=== PATIENT | male | born 1960 | race Caucasian/White ===

== ENCOUNTER 2022-09-04 14:52 | Outpatient (REF) | payer OTHER, SELFPAY ==
[2022-09-06 10:41] LABS: COVID-19 RT-PCR UVMMC Result Negative (Negative)
== END 2022-09-04 14:53 | disposition home or self-care (01) ==
LOC: LBN 14:52
PROVIDERS: Visit Provider Physician Assistant Medical
DX: R09.89 Other specified symptoms and signs involving the circulatory and respiratory systems (principal); Z20.822 Contact with and (suspected) exposure to COVID-19
CPT/HCPCS: U0003; 87081

== ENCOUNTER 2023-06-04 14:59 | Outpatient (CLI) | payer MEDICARE, OTHER, SELFPAY ==
--- NOTE | 2023-06-04 15:06 | DI.RAD_ITS ---
Exam(s) XR CHEST 2V PA LATERAL EXAM: XR CHEST 2V PA LATERAL CLINICAL HISTORY: COUGH, FEVER,? PNEUMONIA,RHONCHOROROUS SOUNDS. TECHNIQUE: 2D digital imaging was performed. COMPARISON: No exams were available for comparison FINDINGS: 2 views: Heart size is normal. The mediastinum is not widened. Lungs are clear. No infiltrates nor pleural effusions. IMPRESSION: No acute pulmonary findings. DATA REPOSITORY: RADIATION DOSE DELIVERED:
== END 2023-06-04 15:19 ==
PROVIDERS: Visit Provider Physician Assistant Medical
DX: R05.8 Other specified cough (principal)
CPT/HCPCS: 71046

== ENCOUNTER 2023-06-04 15:05 | Outpatient (REF) | payer MEDICARE, OTHER, SELFPAY ==
[2023-06-07 10:29] LABS: Lyme Ab w Rflx to Lyme Confirm Negative (Negative)
[2023-06-09 14:35] LABS: B. miyamotoi PCR Negative (Negative); Babesia divergens/MO-1 Negative (Negative); Babesia duncani Negative (Negative); Babesia microti Negative (Negative); Ehrlichia chaffeensis Negative (Negative); Ehrlichia ewingii/canis Negative (Negative); Ehrlichia muris eauclairensis Negative (Negative)
[2023-06-09 14:51] LABS: Anaplasma phagocytophilum Positive (Negative)
== END 2023-06-04 15:06 | disposition home or self-care (01) ==
LOC: LBN 15:05
PROVIDERS: Visit Provider Physician Assistant Medical
DX: M79.18 Myalgia, other site (principal)
CPT/HCPCS: 87798; 86618

== ENCOUNTER 2023-06-05 17:34 | Emergency (ER) | payer MEDICARE, OTHER, SELFPAY ==
[2023-06-05 17:37] VITALS: BP 152/95; PULSE 95; RESP 22; TEMP 37.2; O2SAT 98
--- NOTE | 2023-06-05 17:41 | ED.GENADUL_ITS ---
Discharge Plan Disposition Patient Disposition: Home Discharge Details Clinical Impression: Viral illness Primary Care Provider: Unknown,Unknown ED Provider: Jim Varma Watkins Meds and New Rx's Prescriptions: New ondansetron 4 mg tablet,disintegrating 4 mg PO Q8H PRNQty: 14 0RF Continued benzonatate 200 mg capsule 200 mg PO TID PRN Patient Comments: take 1 capsule by mouth three times a day if needed lisinopril 20 mg tablet 20 mg PO DAILY Patient Comments: take 1 tablet by mouth once daily albuterol sulfate 90 mcg/actuation HFA aerosol inhaler 2 puff INHALATION Q4H PRN PRN Patient Comments: INHALE 2 PUFFS BY MOUTH AND INTO THE LUNGS EVERY 4 TO 6 HORUS ... (REFER TO PRESCRIPTION NOTES). tadalafil 20 mg tablet 20 mg PO DAILY Patient Comments: take 1 tablet by mouth every DAY NEEDED Discharge Instructions Instructions: Viral Syndrome (ED) Additional Instructions: You were seen in the ED for continued fever, body aches, nausea, cough with a work-up that is reassuring and vital signs that are reassuring. This does seem to be viral in nature. Have prescribed ondansetron to help control nausea. Rest and take it easy over the rest of the weekend alternating acetaminophen with ibuprofen as we discussed. Push fluids to stay hydrated. Follow-up with primary care on Wednesday. Return to ED for any increasing shortness of breath, confusion, chest pain, abdominal pain, vomiting, other concerns. Medical Decision Making Patient presenting with continued symptoms that seem most consistent with viral illness. His chest x-ray from yesterday was read as negative. I have reviewed it myself today and concur. EKG is sinus rhythm with PVC no acute ST changes. He does appear to be tachypneic but he is not tachycardic. He has low-grade fever here. His lungs are clear without wheeze. His abdomen is benign. We will place an IV and give fluids and Zofran. We will check laboratory studies and nasal swab and reevaluate. Patient's white count and platelets are little low but hemoglobin is normal. Chemistries with some evidence of dehydration with BUN and creatinine being a little high. Electrolytes are normal. Liver function mostly normal other than an AST of 41. Troponin is negative. Urinalysis negative. On reevaluation he does feel somewhat better. Still seems a little tachypneic but with ambulation his heart rate and saturations stayed normal. I did do a VBG as he is a former smoker and he is alkalotic with a PCO2 of 26 consistent with his tachypnea which may be driven by his fevers as his heart rate and respiratory rate have come down with his fever. He does have a tick panel pending but this seems unlikely. I think this is all viral in nature. Will prescribe Zofran for recurrent nausea. Home to rest for the rest of the weekend. Follow-up with primary care on Wednesday. Return precautions provided. Lab Data Lab results reviewed: Yes I reviewed the patient's lab results. ECG Data Attestation: I personally reviewed and interpreted this ECG (s) as follows: Prior ECG tracings: available for review Interpretation: see EKG HPI General Mode of arrival: ambulatory . Date/Time Provider Initiated Documentation: 06/05/23 17:35 . Limitations to Documentation: no limitations . Information obtained by: patient . HPI Narrative: Patient presents to ED with continued body aches, nausea, fever, shortness of breath. Patient began to feel unwell on Wednesday, 3 days ago. Patient was seen at urgent care yesterday and had a tick panel drawn as well as a chest x- ray done. He reports negative home COVID test and reports negative [id number]-dhup COVID/flu test at urgent care. Does not have much of an appetite but he has been drinking. He has a cough but it is nonproductive. He has mild headache but much more fatigue, malaise, body aches than anything. Fever does respond to [id number] antipyretics but keeps returning. Denies any rash. Denies any urinary symptoms. Denies any abdominal pain. Related Data Home Medications Medication Instructions Recorded Confirmed albuterol sulfate 90 mcg/actuation 2 puff inhalation Q4H PRN PRN 06/05/23 06/05/23 aerosol inhaler benzonatate 200 mg capsule 200 mg PO TID PRN 06/05/23 06/05/23 lisinopril 20 mg tablet 20 mg PO DAILY 06/05/23 06/05/23 ondansetron 4 mg disintegrating 4 mg PO Q8H PRN #14 tabs 06/05/23 tablet tadalafil 20 mg tablet 20 mg PO DAILY 06/05/23 06/05/23 Previous Rx's Medication Instructions Recorded ondansetron 4 mg disintegrating 4 mg PO Q8H PRN #14 tabs 06/05/23 tablet Allergies Allergy/AdvReac Type Severity Reaction Status Date / Time No Known Allergies Allergy Unverified 06/05/23 17:52 General Stated Complaint: GenMedical JUANA: 3 Review of Systems Narrative: Per HPI PFSH All Active Problems (Updated 06/05/23 @ 20:52 by Jim Varma MD) Viral illness (Acute) Medical History HTN (hypertension) Social History Smoking/Tobacco Use Status: Former Tobacco Use Quit Date: 04/22/23 Smoking risk assessment performed?: Yes Alcohol Intake: current Alcohol Intake frequency: a few times a month Drug use: Daily Substance use type: marijuana Details: patient states feeling depressed uses THC to help Housing: house Do you feel safe at home: Yes Do you feel safe in your relationship?: Yes Exam Narrative Exam Narrative: Const: WDWN male in NAD. HEENT: NC/AT. Normal facial exam. Eyes: Normal conjunctiva and sclera. Neck: Supple. Trachea midline. Lungs: Normal respiratory effort. Lungs are clear. Mildly tachypneic. Cor: RRR without murmur/gallop. Good radial pulses. GI: Soft. NT/ND. No guarding or rebound. Neuro: A+O x 3. Normal speech, mentation, gait. Cranial nerves II - XII grossly intact. No gross motor or sensory deficit. Ext: No C/C/E. Skin: Warm and dry without rash. Course Vital Signs Vital signs: Vital Signs Temperature 99.0 F 06/05/23 17:37 Pulse 95 H 06/05/23 17:37 Respiratory Rate 22 06/05/23 17:37 Blood Pressure 152/95 H 06/05/23 17:37 Pulse Oximetry 98 06/05/23 17:37 Temperature 99.0 F 06/05/23 17:37 Temperature Source Skin 06/05/23 17:37 Pulse 95 H 06/05/23 17:37 Respiratory Rate 22 06/05/23 17:37 Blood Pressure 152/95 H 06/05/23 17:37 Blood Pressure Position Sitting 06/05/23 17:37 Pulse Oximetry 98 06/05/23 17:37 Oxygen Delivery Method Room Air 06/05/23 17:37 Oxygen Flow Rate 0 06/05/23 17:37 Pain Level 8 06/05/23 17:37
[2023-06-05 17:45] VITALS: RESP 20
--- NOTE | 2023-06-05 17:45 | RT.EKG_ITS ---
APPROVED REPORT Exam: Resting ECG Reason for Exam: weakness Patient Location: E HR:84 bpm ECG Measurements Heart Rate 84 AXIS WY 161 P 68 QRSd 103 QRS 13 QT 386 T 17 QTc 448 Conclusion Sinus rhythm...normal P axis, V-rate 60- 99 Ventricular premature complex...V complex w/ short R-R interval Probable left atrial enlargement...P >50mS, <-0.10mV V1 Normal [place] I have reviewed and interpreted ECG and agree with software generated interpretation.
[2023-06-05] MEDS: Normal Saline 1,000 ML 1000 ML IV (18:07)
[2023-06-05] MEDS: Ondansetron 4 MG/2 ML VIAL IVP (18:07)
[2023-06-05 18:14] LABS: Abs Immature Grans 0.02 10^3/uL (0.0-0.06); HCT 44.9 % (40.0-50.0); HGB 15.5 g/dL (13.5-17.5); MCH 30.6 pg (27.0-33.0); MCHC 34.5 % (32.0-36.0); MCV 89 fL (80-95); MPV 11.8 fL (8.0-11.0); RBC 5.07 10^6/uL (4.36-5.78); RDW 12.7 % (11.8-14.1); RDW-SD 41.3 fL; WBC 3.08 10^3/uL (4.4-10.8)
[2023-06-05 18:26] LABS: Absolute Lymphocyte Count 0.59 10^3/uL (1.2-3.4); Absolute Monocyte Count 0.18 10^3/uL (0.1-0.8); Absolute Neutrophil Count 2.31 10^3/uL (1.2-6.7); Atypical Lymphocytes % 3; Bands % 3
[2023-06-05 18:27] LABS: Diff Comment Manual Differential; Platelet Count 56 10^3/uL (130-400); RBC Morphology Normal
[2023-06-05 18:28] LABS: ALT 36 U/L (16-63); AST 41 U/L (15-37); Albumin 3.5 g/dL (3.4-5.0); Alkaline Phosphatase 67 U/L (46-116); Anion Gap 9.6 mmol/L (3-11); BUN 25 mg/dL (7-18); Bilirubin, Total 0.8 mg/dL (0.2-1.0); CO2 25.4 mmol/L (21.0-32.0); CREATININE 1.4 mg/dL (0.70-1.30); Calcium 9.3 mg/dL (8.5-10.1); Chloride 101 mmol/L (98-107); Estimated GFR 55.78 (mL/min/1.73m2); Glucose 119 mg/dL (74-106); Lipase 51 U/L (16-77); Magnesium 1.9 mg/dL (1.8-2.4); Potassium 3.5 mmol/L (3.5-5.1); Sodium 136 mmol/L (136-145); Troponin I < 50 ng/L (<or=60)
[2023-06-05 18:34] VITALS: TEMP 37.3
[2023-06-05 18:54] LABS: COVID-19 PCR Negative (Negative); Influenza A PCR Negative (Negative); Influenza B PCR Negative (Negative); RSV PCR Negative (Negative)
[2023-06-05 18:58] LABS: Source Nasopharynx
[2023-06-05 19:14] LABS: Bilirubin Negative (Negative); Blood Small (Negative); Clarity Clear (Clear); Glucose Negative (Negative); Ketones 40 mg/dL (Negative); Leukocyte Esterase Negative (Negative); Nitrite Negative (Negative); Specific Gravity 1.015 (1.005-1.025); Urobilinogen 0.2 mg/dL (Up to 0.2)
[2023-06-05 19:21] LABS: Bacteria Rare HPF (Negative); C & S Indicated? No; Casts 0-2 Hyaline LPF (Negative); Crystals Few Amorphous HPF (Negative); Epithelial Cells Few HPF (Negative); Mucus Moderate (Negative); WBC 0-2 HPF (0-5)
[2023-06-05 20:15] LABS: BE (Venous) 1 mmol/L (-2-3); HCO3 (Venous) 23 mmol/L (23-28); O2 Sat (Venous) 94 %; TCO2 (Venous) 20 mmol/L (24-29); pCO2 (Venous) 26 mmHg (41-51); pH (Venous) 7.56 (7.31-7.41); pO2 (Venous) 58 mmHg
[2023-06-05 20:17] VITALS: BP 131/82; PULSE 80; RESP 18; TEMP 37.1; O2SAT 96
== END 2023-06-05 21:00 | disposition home or self-care (01) ==
PROVIDERS: Emergency Provider Emergency Medicine
DX: B34.9 Viral infection, unspecified (principal); E86.0 Dehydration; R94.31 Abnormal electrocardiogram [ECG] [EKG]; I49.3 Ventricular premature depolarization
CPT/HCPCS: 80053; 82805; 83690; 87637; 93005; 96374; 99283; 81003; 81015; 83735; 84484; 85025; 93010; J2405

== ENCOUNTER 2024-10-30 01:46 | Outpatient (CLI) | payer MEDICARE, SELFPAY ==
--- NOTE | 2024-10-30 07:00 | DI.RAD_ITS ---
Exam(s) XR FOOT LT COMPLETE EXAM: XR FOOT LT COMPLETE CLINICAL HISTORY: left foot pain,m79.672. TECHNIQUE: 2D digital imaging was performed. Three views. COMPARISON: No exams were available for comparison FINDINGS: BONES: No acute fracture is present. Old fracture of the proximal phalanx of the 5th toe. No bony d estructive lesion is seen. JOINTS: No dislocation present. Mild to moderate degenerative changes noted in the intertarsal dhara on and tarsal metatarsal joints. Mild degenerative changes are noted of the 1st MTP joint. The plan tar arch is maintained. SOFT TISSUE: Normal. IMPRESSION: [id number] degenerative changes. No acute abnormality. DATA REPOSITORY: RADIATION DOSE DELIVERED:
== END 2024-10-30 02:06 ==
PROVIDERS: Visit Provider Podiatrist
DX: M79.672 Pain in left foot (principal)
CPT/HCPCS: 11720; 73630

== ENCOUNTER 2025-01-10 10:42 | Emergency (ER) | payer MEDICARE, SELFPAY ==
[2025-01-10 10:55] VITALS: BP 176/106; PULSE 74; RESP 20; TEMP 36.7; O2SAT 99
--- NOTE | 2025-01-10 11:27 | W.ED.GENAD ---
Discharge Plan Disposition Patient Disposition: Home Condition: Good Discharge Details Clinical Impression: Nummular eczema Primary Care Provider: Brenda Urban ED Provider: Christopher Mcmahan Home Meds and New Rx's Prescriptions: New prednisone 20 mg tablet 20 mg PO DAILY Qty: 42 0RF Rx Instructions: Take 3 tablets daily for 7 days, followed by 2 tablets daily for 7 days, followed by 1 tablet daily for 7 days. hydroxyzine HCl 25 mg tablet 25 mg PO BID PRNQty: 30 0RF No Action ketoconazole 2 % cream 1 applic topical DAILY Qty: 120 6RF Rx Instructions: Apply to toenails once daily lisinopril 20 mg tablet 20 mg PO DAILY Patient Comments: take 1 tablet by mouth once daily albuterol sulfate 90 mcg/actuation HFA aerosol inhaler 2 puff INHALATION Q4H PRN PRN Patient Comments: INHALE 2 PUFFS BY MOUTH AND INTO THE LUNGS EVERY 4 TO 6 HORUS ... (REFER TO PRESCRIPTION NOTES). tadalafil 20 mg tablet 20 mg PO DAILY Patient Comments: take 1 tablet by mouth every DAY NEEDED ondansetron 4 mg tablet,disintegrating 4 mg PO Q8H PRNQty: 14 0RF amlodipine 5 mg tablet 5 mg PO DAILY Discharge Instructions Instructions: Skin Rash ED Additional Instructions: At this time you appear to have nummular eczema. Please take the steroid as prescribed. Please use a humidifier in your home to help with the moisture content. Please enjoy a sun exposure in warm environments if at all possible. Please take the hydroxyzine/Atarax as needed for itchiness. 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 If you notice any worsening of your symptoms, or any new symptoms such as vomiting, diarrhea, fever, chills, shortness of breath, chest pain, numbness, weakness, or fainting , please return immediately to the emergency department for reevaluation. Please follow up with your primary care provider as soon as possible for reassessment and reevaluation. As always, it was a pleasure participating in your medical care today. Referrals: Brenda Urban [Primary Care Provider] - Discharge Data Discharge Date/Time-TO BE ENTERED AT DEPARTURE: 01/10/25 11:49 HPI General Date/Time Provider Initiated Documentation: 02/19/25 11:04. HPI Narrative: 64-year-old male with past medical history of reactive airway disease, presents today for evaluation of rash. Patient states that for the last 2 months he has had a rash, and initially started on his medial thighs and will resolved with topical corticosteroids. It then over the last month and a half has transitioned over his legs arms chest back and abdomen. It is itchy in nature. It encompasses multiple circular lesions. He and his have tried changing all their detergents to hypoallergenic, and of change their soaps to Dove moisturizer, they have changed their lotions to hypoallergenic, they have avoided any new or atypical foods. He has noted that his house has been a bit more dry this season compared to other seasons. His has no associated rash, but interestingly he has noticed that his dogs have had a bit of a rash this season with significant dry and flaky skin. Aside for the itchiness he denies any other complaints. He denies any oral lesions. No other complaints at this time. No other modifying factors. Related Data Home Medications ?Medication ?Instructions ?Recorded ?Confirmed albuterol sulfate 90 mcg/actuation 2 puff inhalation Q4H PRN PRN 06/05/23 01/10/25 aerosol inhaler lisinopril 20 mg tablet 20 mg PO DAILY 06/05/23 01/10/25 ondansetron 4 mg disintegrating 4 mg PO Q8H PRN #14 tabs 06/05/23 01/10/25 tablet tadalafil 20 mg tablet 20 mg PO DAILY 06/05/23 01/10/25 ketoconazole 2 % topical cream 1 applic topical DAILY #120 grams 10/30/24 01/10/25 amlodipine 5 mg tablet 5 mg PO DAILY 01/10/25 01/10/25 hydroxyzine HCl 25 mg tablet 25 mg PO BID PRN #30 tabs 01/10/25 prednisone 20 mg tablet 20 mg PO DAILY #42 tabs 01/10/25 Previous Rx's ?Medication ?Instructions ?Recorded ondansetron 4 mg disintegrating 4 mg PO Q8H PRN #14 tabs 06/05/23 tablet ketoconazole 2 % topical cream 1 applic topical DAILY #120 grams 10/30/24 hydroxyzine HCl 25 mg tablet 25 mg PO BID PRN #30 tabs 01/10/25 prednisone 20 mg tablet 20 mg PO DAILY #42 tabs 01/10/25 Allergies Allergy/AdvReac Type Severity Reaction Status Date / Time No Known Allergies Allergy Verified 01/10/25 10:58 General Stated Complaint: RashLesion JUANA: 4 Exam Narrative Exam Narrative: 1.Const: Well-nourished, Well-developed, appearing stated age 2.Eyes: PERRL, no conjunctival injection, and symmetrical lids. 3.ENT: Atraumatic external nose and ears. Moist MM. Neck: Symmetric, trachea midline, No thyromegaly. 4.CVS: +S1/S2, Peripheral pulses 2+ and equal in all extremities. Brisk capillary refill in all extremities. 5.RESP: Unlabored respiratory effort. Clear to auscultation bilaterally. No wheezes rales or rhonchi 6.GI: Soft, Nontender/Nondistended, No hepatosplenomegaly. No guarding or rebound. 7.MSK: Normocephalic/Atraumatic, Extremities w/o deformity or ttp No cyanosis or clubbing, Normal movement of all extremities 8.Skin: Patient has multiple circular/annular repeat lesions on his arms thighs flanks chest and back, they are around 2 to 3 cm in diameter, circular well circumscribed border, raised edges, with a dry scaly slightly erythematous central component. No fluctuance. Negative Nikolsky sign. No large vesicles or bulla. No palpable purpura. No oral lesions. No mucosal lesions. No evidence of severe cellulitis. No evidence of vaccine preventable rash. 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 Sensation grossly intact, no focal neurologic deficits. 10.Psych: (AAO) x3. Appropriate mood and affect Course Vital Signs Vital signs: Vital Signs Temperature 36.7 C 01/10/25 10:55 Pulse 74 01/10/25 10:55 Respiratory Rate 20 01/10/25 10:55 Blood Pressure 176/106 H 01/10/25 10:55 Pulse Oximetry 99 01/10/25 10:55 Temperature 36.7 C 01/10/25 10:55 Pulse 74 01/10/25 10:55 Respiratory Rate 20 01/10/25 10:55 Blood Pressure 176/106 H 01/10/25 10:55 Blood Pressure Position Sitting 01/10/25 10:55 Pulse Oximetry 99 01/10/25 10:55 Oxygen Delivery Method Room Air 01/10/25 10:55 Oxygen Flow Rate 0 01/10/25 10:55 Pain Level 5 01/10/25 10:55 Medical Decision Making 64-year-old male with past medical history of reactive airway disease, presents today for evaluation of rash. Patient states that for the last 2 months he has had a rash, and initially started on his medial thighs and will resolved with topical corticosteroids. It then over the last month and a half has transitioned over his legs arms chest back and abdomen. It is itchy in nature. It encompasses multiple circular lesions. He and his have tried changing all their detergents to hypoallergenic, and of change their soaps to Dove moisturizer, they have changed their lotions to hypoallergenic, they have avoided any new or atypical foods. He has noted that his house has been a bit more dry this season compared to other seasons. His has no associated rash, but interestingly he has noticed that his dogs have had a bit of a rash this season with significant dry and flaky skin. Aside for the itchiness he denies any other complaints. He denies any oral lesions. No other complaints at this time. No other modifying factors. Patient has multiple circular/annular repeat lesions on his arms thighs flanks chest and back, they are around 2 to 3 cm in diameter, circular well circumscribed border, raised edges, with a dry scaly slightly erythematous central component. No fluctuance. Negative Nikolsky sign. No large vesicles or bulla. No palpable purpura. No oral lesions. No mucosal lesions. No evidence of severe cellulitis. No evidence of vaccine preventable rash. Symptoms appear concerning for nummular eczema. No history of autoimmune conditions. Symptoms appear clinically inconsistent with erythema nodosum, no current clinical evidence of staph scalded skin syndrome, erythema multiforme, erythema migrans, toxic epidermal necrolysis, Mckeon-Pastor syndrome, Kawasaki-like rash, meningococcemia, pemphigus vulgaris, or necrotizing fasciitis. Will recommend extended course of p.o. steroids. Will give tapering dose. Recommend continued avoidance of application of aggravating lotions, recommend humidifier in the house to increase house humidity component. Recommend sun exposure if possible in the warmth. Recommend close follow-up with PCP and dermatology if symptoms do not improve after steroids. Discussed red flags for which to return. I have extensively reviewed the treatment plan and discharge instructions with the patient. I have addressed all patient concerns at this time. The patient was made aware of what symptoms to monitor for that would warrant a return to the emergency department. Discussed the plan with the patient, they demonstrate verbal understanding and agreement with our assessment and plan at this time. The documentation in this chart was dictated using [employer] dictation software. Please excuse any dictation errors. Quality:SDOH Health Related Social Needs: No Data to Display PFSH All Active Problems (Updated 01/10/25 @ 11:28 by Christopher Mcmahan DO) Nummular eczema (Acute) Pain in both feet (Acute) Nail dystrophy (Acute) Onychomycosis (Acute) Hammertoe of left foot (Acute) Medical History HTN (hypertension) Social History Smoking/Tobacco Use Status: Former Tobacco Use Quit Date: 04/22/23 Smoking risk assessment performed?: Yes Alcohol Intake: current Alcohol Intake frequency: a few times a month Drug use: Daily Substance use type: marijuana Details: patient states feeling depressed uses THC to help Housing: house Do you feel safe at home: Yes Do you feel safe in your relationship?: Yes
[2025-01-10] MEDS: hydrOXYzine HCL 25 MG TAB PO (11:37)
[2025-01-10] MEDS: predniSONE 20 MG TAB 60 MG PO (11:37)
== END 2025-01-10 11:49 | disposition home or self-care (01) ==
LOC: ER 11:37
PROVIDERS: Emergency Provider Student in an Organized Health Care Education/Training Program; PCP Physician Assistant Medical
DX: L30.0 Nummular dermatitis (principal); I10 Essential (primary) hypertension; Z87.891 Personal history of nicotine dependence
CPT/HCPCS: 99283; J7512

== ENCOUNTER → 2025-01-29 13:43 | Outpatient (BNVA) | payer MEDICARE, SELFPAY | PROVIDERS: PCP Physician Assistant Medical; Referring Provider Physician Assistant Medical; Visit Provider Podiatrist | DX: M79.671 Pain in right foot (principal); M79.672 Pain in left foot; L60.3 Nail dystrophy; B35.1 Tinea unguium; M20.42 Other hammer toe(s) (acquired), left foot | CPT/HCPCS: 99213 ==